=== PATIENT | male | born 1950 | race Caucasian/White ===

== ENCOUNTER → 2016-10-11 | Outpatient (CLI) | payer BC ==
[~2016-10-11] MED LIST: ATOR40TA PO; JANU100T PO; METF500T PO; VALS320T PO
--- NOTE | 2016-10-11 09:20 | REP ---
Right upper quadrant sonography: History: Epigastric pain and nausea. Comparison CT study March 15, 2016. Comparison sonography March 15, 2016. Findings: Scan quality is inhibited to some degree by patient body habitus and fatty infiltration of the liver. No focal hepatic lesion is seen. Scanning demonstrates a normal sized thin-walled gallbladder without evidence of polyp. Common bile duct is normal measuring 0.6 cm in greatest diameter. The pancreas is obscured by abdominal gas. There is no evidence of ascites or right renal abnormality. The right kidney measures 12.8 x 6.2 x 5.7 cm. Impression Fatty infiltration of the liver. No other significant abnormality seen. Signed by Daniel Sandoval MD 10/11/2016 12:57 P
== END ==
LOC: M RAD 08:08
PROVIDERS: ATTEND Internal Medicine Gastroenterology
DX: K76.0 Fatty (change of) liver, not elsewhere classified (principal)

== ENCOUNTER → 2016-10-27 | Outpatient (CLI) | payer BC ==
[~2016-10-27] VITALS: Ht 180.3 cm; Wt 123.4 kg
[~2016-10-27] MED LIST changes: -ATOR40TA PO; +ATOR40TA75 PO; -METF500T PO; +METF500T13 PO; +NS 1,000 ML IV ONE; +PROPOFOL 200 MG/20 ML VIAL As Ordered ONE
--- NOTE | 2016-10-27 12:01 | ROOR ---
Patient Name: Johnie Love Procedure Date: 10/27/2016 11:47 AM Date of : 1950 Age: 66 Room: [facility] Gender: Male Note Status: Finalized Procedure: Upper Endoscopy + Biopsies Indications: Heartburn, Exclusion of Honeycutt's esophagus Providers: Mars Pearce MD Referring MD: KRYSTIAN HARRINGTON JR, MD Requesting Provider: Medicines: Monitored Anesthesia Care Complications: No immediate complications. Procedure: Pre-Anesthesia Assessment: - The heart rate, respiratory rate, oxygen saturations, blood pressure, adequacy of pulmonary ventilation, and response to care were monitored throughout the procedure. The Endoscope was introduced through the mouth, and advanced to the second part of duodenum. The upper GI endoscopy was accomplished without difficulty. The patient tolerated the procedure well. Findings: The Z-line was irregular and was found 40 cm from the incisors. Multiple biopsies were obtained with cold forceps for evaluation to rule out Honeycutt's Esophagus randomly at the gastroesophageal junction. A small hiatal hernia was present. No other significant abnormalities were identified in a careful examination of the stomach. The exam of the duodenum was otherwise normal. Impression: - Z-line irregular, 40 cm from the incisors. - Small hiatal hernia. - Multiple biopsies were obtained at the gastroesophageal junction. - The examination was otherwise normal. Recommendation: - Patient has a contact number available for emergencies. The signs and symptoms of potential delayed complications were discussed with the patient. Return to normal activities tomorrow. Written discharge instructions were provided to the patient. - High fiber diet. - Discharge patient to home. - Follow an antireflux regimen. - Continue present medications. - Await pathology results. - Telephone GI clinic for pathology results in 1 week. - Return to referring physician. - The findings and recommendations were discussed with the patient's family. Mars Pearce MD Mars Pearce MD 10/27/2016 12:01:29 PM This report has been signed electronically. Number of Addenda: 0 Note Initiated On: 10/27/2016 11:47 AM Estimated Blood Loss: Estimated blood loss: none.
[2016-10-27 12:30] VITALS: BP 138/87
== END | disposition home or self-care (01) ==
LOC: M OPP 10:57
PROVIDERS: ATTEND Internal Medicine Gastroenterology
DX: K21.0 Gastro-esophageal reflux disease with esophagitis (principal); K22.8 Other specified diseases of esophagus; K44.9 Diaphragmatic hernia without obstruction or gangrene; E11.9 Type 2 diabetes mellitus without complications; I10 Essential (primary) hypertension; E78.00 Pure hypercholesterolemia, unspecified; E66.9 Obesity, unspecified; Z79.899 Other long term (current) drug therapy; Z79.84 Long term (current) use of oral hypoglycemic drugs; Z88.1 Allergy status to other antibiotic agents

== ENCOUNTER → 2019-05-29 | Outpatient (CLI) | payer BC ==
[~2019-05-29] MED LIST changes: -NS 1,000 ML IV ONE; -PROPOFOL 200 MG/20 ML VIAL As Ordered ONE; -VALS320T PO; +VALS320T2 PO
--- NOTE | 2019-05-29 16:40 | REP ---
PA and lateral chest: There are no comparisons. The lung tee are clear. The cardiac size is normal. The carlos a, mediastinum, and skeletal structures are unremarkable. Impression: Negative PA and lateral chest. Electronically Signed by Jarred Rey MD 05/29/2019 04:32 P
== END ==
LOC: M WUC 10:26
PROVIDERS: ATTEND Internal Medicine
DX: R05 Cough (principal)

== ENCOUNTER → 2020-06-09 | Outpatient (CLI) | payer BC, MEDICARE ==
--- NOTE | 2020-06-09 15:48 | REP ---
INDICATION: SWELLING, SOFT TISSUE MASS. COMPARISON: None. TECHNIQUE: Real-time sonographic evaluation of proximal left lower leg performed anteriorly at the site of bruising and swelling. Reportedly the swelling as decreased. FINDINGS: At this location there is a complex hypoechoic area which appears to represent complex fluid. It measures 2.6 x 2.2 x 0.9 cm. I suspect this represents a hematoma. IMPRESSION: Suspected hematoma at the site of bruising and swelling. <Electronically signed by Jarred Worley > 06/09/20 [id number]
== END ==
LOC: M RAD 13:10
PROVIDERS: ATTEND Internal Medicine
DX: R22.42 Localized swelling, mass and lump, left lower limb (principal)

== ENCOUNTER → 2020-09-12 | Outpatient (CLI) | payer MEDICARE ==
[~2020-09-12] MED LIST changes: +BASA100I; +FARX1TAB5; +LOSA50TA88
== END ==
LOC: M LABSMTC 11:57
PROVIDERS: ATTEND Anesthesiology
DX: Z01.812 Encounter for preprocedural laboratory examination (principal); Z11.52 Encounter for screening for COVID-19

== ENCOUNTER 2020-09-17 06:40 | Day surgery (SDC) | payer MEDICARE ==
[~2020-09-17] VITALS: Ht 180.3 cm; Wt 118.8 kg
[~2020-09-17 06:40] MED LIST changes: +NS 1,000 ML IV ONE
[2020-09-17] MEDS ORDERED: LIDOCAINE 2% MDV 20ML VIAL As Ordered ONE (07:20)
[2020-09-17] MEDS ORDERED: propofoL 200 MG/20 ML VIAL As Ordered ONE ×2 (07:20→07:33)
--- NOTE | 2020-09-17 08:04 | ROOR ---
Patient Name: Johnie Love Procedure Date: 09/17/2020 7:27 AM Date of : 1950 Age: 70 Room: [facility] Gender: Male Note Status: Finalized Procedure: Total Colonoscopy to Cecum + ileoscopy + Bx Polypectomy Indications: High risk colon cancer surveillance: Personal history of colonic polyps, Last colonoscopy: 2015 Providers: Mars Pearce MD Referring MD: KRYSTIAN HARRINGTON JR, MD Requesting Provider: Medicines: Monitored Anesthesia Care Complications: No immediate complications. Procedure: Pre-Anesthesia Assessment: - The heart rate, respiratory rate, oxygen saturations, blood pressure, adequacy of pulmonary ventilation, and response to care were monitored throughout the procedure. The Colonoscope was introduced through the anus and advanced to the terminal ileum, with identification of the appendiceal orifice and IC valve. The colonoscopy was performed without difficulty. The patient tolerated the procedure well. The quality of the bowel preparation was excellent. Findings: The perianal and digital rectal examinations were normal. Non-bleeding internal hemorrhoids were found during retroflexion. The hemorrhoids were small and Grade I (internal hemorrhoids that do not prolapse). Multiple small and large-mouthed diverticula were found in the recto-sigmoid colon, sigmoid colon and descending colon. A small polyp was found at 20 cm proximal to the anus. The polyp was sessile. The polyp was removed with a jumbo cold forceps. Resection and retrieval were complete. A small polyp was found at 70 cm proximal to the anus. The polyp was sessile. The polyp was removed with a jumbo cold forceps. Resection and retrieval were complete. The terminal ileum appeared normal. The exam was otherwise without abnormality on direct and retroflexion views. Impression: - Non-bleeding internal hemorrhoids. - Diverticulosis in the recto-sigmoid colon, in the sigmoid colon and in the descending colon. - One small polyp at 20 cm proximal to the anus, removed with a jumbo cold forceps. Resected and retrieved. - One small polyp at 70 cm proximal to the anus, removed with a jumbo cold forceps. Resected and retrieved. - The examined portion of the ileum was normal. - The examination was otherwise normal on direct and retroflexion views. - The exam was otherwise normal to the cecum. Recommendation: - Patient has a contact number available for emergencies. The signs and symptoms of potential delayed complications were discussed with the patient. Return to normal activities tomorrow. Written discharge instructions were provided to the patient. - High fiber diet. - Discharge patient to home. - Continue present medications. - Await pathology results. - Telephone GI clinic for pathology results in 1 week. - Repeat colonoscopy in 5 years for surveillance based on pathology results. - Return to referring physician. - The findings and recommendations were discussed with the patient's family. Procedure Code(s): --- Professional --- 47069, Colonoscopy, flexible; with biopsy, single or multiple Diagnosis Code(s): --- Professional --- Z86.010, Personal history of colonic polyps K64.0, First degree hemorrhoids K63.5, Polyp of colon K57.30, Diverticulosis of large intestine without perforation or abscess without bleeding CPT copyright 2019 [employer]. All rights reserved. The codes documented in this report are preliminary and upon public housing interviewer review may be revised to meet current compliance requirements. Mars Pearce MD Mars Pearce MD 09/17/2020 8:04:24 AM Electronically signed by Mars Pearce MD Number of Addenda: 0 Note Initiated On: 09/17/2020 7:27 AM Estimated Blood Loss: Estimated blood loss: none.
[2020-09-17 08:16] VITALS: BP 147/85
== END 2020-09-17 08:17 | disposition home or self-care (01) ==
LOC: M OPP 06:40
PROVIDERS: ATTEND Internal Medicine Gastroenterology
DX: Z12.11 Encounter for screening for malignant neoplasm of colon (principal); Z86.010 Personal history of colon polyps; K63.5 Polyp of colon; K57.30 Diverticulosis of large intestine without perforation or abscess without bleeding; K64.0 First degree hemorrhoids; E11.9 Type 2 diabetes mellitus without complications; I10 Essential (primary) hypertension; Z79.84 Long term (current) use of oral hypoglycemic drugs; Z79.899 Other long term (current) drug therapy

== ENCOUNTER → 2020-10-07 | Outpatient (CLI) | payer MEDICARE ==
[~2020-10-07] MED LIST changes: -NS 1,000 ML IV ONE
--- NOTE | 2020-10-07 15:34 | REP ---
INDICATION: MID STERNUM PAIN COMPARISON: 05/29/2019 TECHNIQUE: PA and lateral. FINDINGS: The mediastinum and cardiac silhouette are normal. The lung tee demonstrate stable chronic changes without acute consolidation, effusion, or pneumothorax. The skeletal structures are intact and normal. IMPRESSION: No acute cardiopulmonary process. <Electronically signed by Javon Galan > 10/07/20 [id number]
[2020-10-07 18:13] LABS: AMYLASE 45 U/L (25-115); LIPASE 150 U/L (73-393)
== END ==
LOC: M WUC 14:55
PROVIDERS: ATTEND Physician Assistant Medical
DX: R10.13 Epigastric pain (principal)

== ENCOUNTER → 2020-10-21 | Outpatient (CLI) | payer MEDICARE ==
--- NOTE | 2020-10-21 10:06 | REP ---
INDICATION: RUQ ABD PAIN. COMPARISON: 10/11/2016. TECHNIQUE: Real-time sonographic evaluation of right upper quadrant performed. FINDINGS: The gallbladder demonstrates no evidence of calculi, wall thickening or pericholecystic fluid. There is questionable sludge in the gallbladder. There is tenderness at the site of the gallbladder. There is no intrahepatic biliary dilatation, the common bile duct is slightly prominent and measures 8 mm in maximum diameter. The liver demonstrates homogeneous echotexture with no gross mass. The visualized pancreas is grossly unremarkable, not optimally seen due to overlying bowel gas. The right kidney demonstrates no hydronephrosis, with a normal size of 12.0 cm in length. No free fluid is seen. IMPRESSION: Questionable sludge in the gallbladder. No gallstones, gallbladder wall thickening or pericholecystic fluid. There is tenderness at the site of the gallbladder. There is slight prominence of the common bile duct at 8 mm in maximum diameter. <Electronically signed by Jarred Worley > 10/21/20 [id number]
== END ==
LOC: M RAD 06:41
PROVIDERS: ATTEND Physician Assistant Medical
DX: R10.11 Right upper quadrant pain (principal)

== ENCOUNTER → 2021-02-11 | Outpatient (REF) | payer MEDICARE ==
[2021-02-11 12:48] LABS: INR 1.04
[2021-02-11 12:49] LABS: PARTIAL THROMBOPLASTIN TIME 26.2 SECONDS (25.9-37.0)
== END ==
LOC: M LAB REF 12:27
PROVIDERS: ATTEND Internal Medicine
DX: I48.91 Unspecified atrial fibrillation (principal)

== ENCOUNTER → 2021-02-27 | Outpatient (CLI) | payer MEDICARE ==
--- NOTE | 2021-03-01 21:07 | HOLTMON ---
[facility] Test Date: 2021-02-27 Pat Name: SHANTANU MORE Department: Room: - Gender: Male Skeet Operator: jeannette : 1950 Requested By: Juan Lockwood Order Number: [id number] Reading MD: Peng Castanon Interpretive Statements Patient kept a diary for only half of monitoring period and then did not note any symptoms Atrial fibrillation was seen throughout the tracing. Heart rate variability was normal. There were a moderate number of PVC's (vs Benny beats) and no PAC's (atrial fibrillation throughout) with one 3-beat ventricular run. No significant ST events. 3 pauses of over 2 seconds were recorded. Electronically Signed on 03-01-2021 21:07:22 EDT by Peng Castanon
== END ==
LOC: M EKG 09:38
PROVIDERS: ATTEND Internal Medicine
DX: I48.91 Unspecified atrial fibrillation (principal)

== ENCOUNTER → 2021-03-02 | Outpatient (CLI) | payer MEDICARE ==
--- NOTE | 2021-03-04 09:55 | ECHO ---
ECHOCARDIOGRAM DATE OF PROCEDURE: 03/02/2021 Age: 70 Gender: Male Height: 71 inches Weight: 264 pounds Body surface area: 2.37 m2 Outpatient. REFERRING PHYSICIAN: Juan Lynne Jr, M.D. INDICATION: Atrial fibrillation. MEASUREMENTS: 2D Measurements: RV - 3.7 cm LV - 4.8 cm Septum 1.3 cm Posterior wall 1.3 cm Aortic root 3.6 cm LA - 4.6 cm LVEF 75% Doppler Measurements: AV - 1.19 m/s LVOT - 1.11 m/s LVOT diameter 2.0 cm MB-V 90 Early mitral deceleration time 162 msec E prime medial 6.1 A prime lateral 10.8 Average E/E prime ratio 10.7/PCWP 15 mmHg PV - 0.9 m/s Pulmonary artery acceleration time 109 msec PASP 34 mmHg IVC - 1.9 cm COMMENTS: Underlying atrial fibrillation with controlled ventricular response and no intraventricular conduction disturbance. Challenging study in light of the patient's body habitus, but diagnostically useful information was still obtained. M-mode and 2-dimensional echocardiography was performed with pulse, continuous wave, color flow, and tissue Doppler studies. Mild concentric left ventricular hypertrophy with hyperkinetic wall motion. Moderately dilated left atrium with current estimated mean left atrial pressure upper limits of normal. Normal right heart chamber sizes and motion with Doppler sign of mild pulmonary hypertension. Normal IVC size against an elevated central venous pressure. Normal aortic diameters. Mild aortic valvular sclerosis without stenosis and only very mild insufficiency. Mild degenerative changes of the mitral valvular apparatus with mild insufficiency. Normal-appearing tricuspid valve with very mild insufficiency. No apparent intracardiac mass or pericardial effusion.
== END ==
LOC: M CARPUL 09:13
PROVIDERS: ATTEND Internal Medicine
DX: I48.91 Unspecified atrial fibrillation (principal); I08.3 Combined rheumatic disorders of mitral, aortic and tricuspid valves

== ENCOUNTER → 2021-03-27 | Outpatient (CLI) | payer MEDICARE ==
[~2021-03-27] MED LIST changes: +ISOVUE-370 76% 100ML VIAL As Ordered ONE
--- NOTE | 2021-03-27 10:39 | REP ---
INDICATION: RUQ ABD PAIN. COMPARISON: CT abdomen 03/15/[address] abdomen and pelvis 01/24/2015 both before and after contrast TECHNIQUE: Standard helical technique after the intravenous administration of 100 cc Isovue 370 FINDINGS: The lung bases are stable. The liver, gallbladder, spleen, pancreas, adrenal glands, and kidneys are within normal limits. Although intravenous contrast was administered and there are no pre contrast-enhanced images to review there are 2 sub cm sized radiodensities in the interpolar region of the left kidney possibly reflecting either early contrast excretion or non-obstructing calculi. The abdominal aorta and para-aortic regions are unchanged and again seen to be within normal limits. There is descending colon and sigmoid colon diverticulosis status quo. The bowel loops and the mesenteries are otherwise unremarkable. There is no evidence of a mass or adenopathy. There is no free fluid or free air. Increased adipose seen in the right inguinal canal compared to the left which has increased compared to the 01/24/2015 CT. Bone window technique throughout the examination shows chronic spinal degenerative changes and discogenic changes seen particularly at L4-5 and L5-S1. There is air density seen in those disc spaces consistent with vacuum phenomena from degenerative disc disease. IMPRESSION: 1. There is no evidence of acute disease. 2. Possible small non-obstructing left nephroliths as described above. If clinically relevant obtained noncontrast enhanced stone protocol CT. 3. Possible adipose only right inguinal hernia. This should be correlated clinically. 4. Other findings as described above. <Electronically signed by Peterson Chu > 03/27/21 [id number]
== END ==
LOC: M RAD 09:08
PROVIDERS: ATTEND Physician Assistant Medical
DX: R10.11 Right upper quadrant pain (principal)
CPT/HCPCS: 74177; Q9967

== ENCOUNTER → 2021-08-05 | Outpatient (CLI) | payer MEDICARE ==
[~2021-08-05] MED LIST changes: -ISOVUE-370 76% 100ML VIAL As Ordered ONE; +LOSA50TA28; -LOSA50TA88
== END ==
LOC: M RAD 12:15
PROVIDERS: ATTEND Internal Medicine
DX: M79.605 Pain in left leg (principal)

== ENCOUNTER 2022-04-20 08:12 | Emergency (ER) | payer MEDICARE ==
[~2022-04-20] VITALS: Ht 180.3 cm; Wt 118.2 kg
[~2022-04-20 08:12] MED LIST changes: -LOSA50TA28; +LOSA50TA28 PO
[2022-04-20] MEDS ORDERED: ELIQ5TAB PO (09:09)
[2022-04-20] MEDS ORDERED: METF-838 PO (09:09)
[2022-04-20] MEDS ORDERED: CARV25TA PO (09:09)
[2022-04-20] MEDS ORDERED: TRAZ-252 PO (09:09)
[2022-04-20] MEDS ORDERED: BUSP10TA79 PO (09:09)
[2022-04-20] MEDS ORDERED: ATOR80TA59 PO (09:09)
[2022-04-20] MEDS ORDERED: QUET1TAB17 PO (09:09)
[2022-04-20] MEDS ORDERED: FARX1TAB3 PO (09:09)
[2022-04-20] MEDS ORDERED: BASA100I SC (09:14)
[2022-04-20] MEDS ORDERED: SERT50TA29 PO (09:26)
[2022-04-20] MEDS ORDERED: ATIV1TAB10 PO (09:26)
[2022-04-20] MEDS ORDERED: META1TAB22 PO (09:26)
[2022-04-20 11:26] VITALS: BP 128/68
[2022-04-21] MEDS ORDERED: LOSA100T45 PO (16:15)
[2022-04-21] MEDS ORDERED: APAP500T10 PO (16:15)
== END 2022-04-20 11:42 | disposition home or self-care (01) ==
LOC: M ED 08:12 → EDBD 08:12 → M ED 11:42
DX: S93.402A Sprain of unspecified ligament of left ankle, initial encounter (principal); S83.412A Sprain of medial collateral ligament of left knee, initial encounter; S92.155A Nondisplaced avulsion fracture (chip fracture) of left talus, initial encounter for closed fracture; W01.0XXA Fall on same level from slipping, tripping and stumbling without subsequent striking against object, initial encounter; Y92.002 Bathroom of unspecified non-institutional (private) residence as the place of occurrence of the external cause; I48.91 Unspecified atrial fibrillation; I10 Essential (primary) hypertension; E11.9 Type 2 diabetes mellitus without complications; E78.5 Hyperlipidemia, unspecified; Z86.73 Personal history of transient ischemic attack (TIA), and cerebral infarction without residual deficits; Z88.1 Allergy status to other antibiotic agents; Z79.01 Long term (current) use of anticoagulants; Z79.899 Other long term (current) drug therapy

== ENCOUNTER 2022-04-21 10:26 | Inpatient (IN) | payer MEDICARE ==
[~2022-04-21] VITALS: Ht 180.3 cm; Wt 103.9 kg
[~2022-04-21 10:26] MED LIST changes: +ATIV1TAB10 PO; +ATOR80TA59 PO; +BASA100I SC; +BUSP10TA79 PO; +CARV25TA PO; +ELIQ5TAB PO; +FARX1TAB3 PO; +META1TAB22 PO; +METF-838 PO; +QUET1TAB17 PO; +SERT50TA29 PO; +TRAZ-252 PO
[2022-04-21 13:15] LABS: BASO % 0.6 % (0.0-1.0); EOS # 0.2 10^3/uL (0.0-0.5); EOS % 2.8 % (0.0-3.0); HEMATOCRIT 40.4 % (42.0-52.0); HEMOGLOBIN 12.7 g/dl (13.5-17.5); LYMPH # 1.8 10^3/uL (1.5-5.0); LYMPH % 24.5 % (24.0-44.0); MEAN CORPUSCULAR HEMOGLOBIN 29.4 pg (27.0-33.0); MEAN CORPUSCULAR HGB CONC 31.4 g/dl (32.0-36.5); MEAN CORPUSCULAR VOLUME 93.5 fl (80.0-96.0); MONO # 0.8 10^3/uL (0.0-0.8); MONO % 10.3 % (2.0-8.0); NEUTROPHILS # 4.5 10^3/uL (1.5-8.5); NEUTROPHILS % 61.5 % (36.0-66.0); PLATELET COUNT, AUTOMATED 146 10^3/uL (150-450); RED BLOOD COUNT 4.32 10^6/uL (4.30-6.10); WHITE BLOOD COUNT 7.3 10^3/uL (4.0-10.0)
[2022-04-21 13:16] LABS: APPEARANCE, URINE MANUAL CLEAR (CLEAR); COLOR, URINE MANUAL YELLOW (YELLOW)
[2022-04-21 13:19] LABS: BILIRUBIN, URINE MANUAL NEGATIVE (NEGATIVE); BLOOD URINE MANUAL NEGATIVE (NEGATIVE); GLUCOSE, URINE (UA) MANUAL 4+(1000 MG/DL) mg/dL (NEGATIVE); KETONE, URINE MANUAL NEGATIVE (NEGATIVE); LEUKOCYTE ESTERASE, URINE MAN NEGATIVE (NEGATIVE); NITRITE, URINE MANUAL NEGATIVE (NEGATIVE); PROTEIN, URINE MANUAL NEGATIVE (NEGATIVE); UROBILINOGEN, URINE MANUAL NORMAL (NORMAL)
[2022-04-21 13:28] LABS: INR 1.13; PROTHROMBIN TIME 14.7 SECONDS (12.5-14.5)
[2022-04-21 13:29] LABS: PARTIAL THROMBOPLASTIN TIME 30.6 SECONDS (24.8-34.2)
[2022-04-21 13:37] LABS: ALBUMIN 2.9 G/DL (3.2-5.2); ALKALINE PHOSPHATASE 60 U/L (46-116); ALT/SGPT 14 U/L (7.0-40); AST/SGOT 20 U/L (<34); BILIRUBIN,TOTAL 0.5 MG/DL (0.3-1.2); BLOOD UREA NITROGEN 23 MG/DL (9-23); CARBON DIOXIDE LEVEL 27 MMOL/L (20-31); CHLORIDE LEVEL 109 MMOL/L (98-107); CREATININE FOR GFR 0.71 MG/DL (0.70-1.30); GLOMERULAR FILTRATION RATE > 60.0 (>42); GLUCOSE, FASTING 77 MG/DL (74-106); POTASSIUM SERUM 4.5 MMOL/L (3.5-5.1); SODIUM LEVEL 144 MMOL/L (136-145); TOTAL PROTEIN 5.7 G/DL (5.7-8.2)
[2022-04-21] MEDS ORDERED: MOM 30ML SUSPENSION UDC PO PRN (14:15)
[2022-04-21] MEDS ORDERED: GLUCOSE 4GM CHEW TABLET PO PRN (14:15)
[2022-04-21] MEDS ORDERED: ACETAMINOPHEN TAB 650MG DOSE (2X325MG) PO PRN (14:15)
[2022-04-21] MEDS ORDERED: GLUCAGON INJ 1MG VIAL SC PRN (14:15)
[2022-04-21] MEDS ORDERED: DEXTROSE 50% 50ML SYRINGE IV PRN (14:15)
[2022-04-21] MEDS ORDERED: APAP500T10 PO (16:15)
[2022-04-21] MEDS ORDERED: LOSA100T45 PO (16:15)
[2022-04-21] MEDS ORDERED: HOME MED LIST COMPLETE! XX SCH (16:20)
[2022-04-21] MEDS ORDERED: ACETAMINOPHEN 500 MG TAB PO PRN (16:45)
[2022-04-21] MEDS ORDERED: KETOROLAC 30 MG/ML 1ML VIAL IV PRN (16:45)
[2022-04-21] MEDS: INSULIN LISPRO (NovoLOG) PER UNIT SC SCH ×2 (17:30→20:13)
[2022-04-21 18:15] VITALS: BP 165/95
[2022-04-21] MEDS: LIDOCAINE 5% (LIDODERM) PATCH TD SCH (18:38)
[2022-04-21 19:56] VITALS: BP 156/94
[2022-04-21] MEDS: traZODone 50 MG TAB PO SCH (20:10)
[2022-04-21] MEDS: APIXABAN 5 MG TAB (ELIQUIS) PO SCH (20:10)
[2022-04-21] MEDS: LORazepam 0.5 MG TAB PO PRN (20:11)
[2022-04-21] MEDS: CARVedilol 12.5 MG TAB PO SCH (20:12)
[2022-04-21] MEDS: DOCUSATE SODIUM 100MG CAPSULE PO SCH (20:12)
[2022-04-21] MEDS: METAXALONE 800 MG TABLET PO SCH (21:41)
[2022-04-22] MEDS: oxyCODONE 5MG TAB PO PRN ×2 (02:09→15:46)
[2022-04-22] MEDS: METAXALONE 800 MG TABLET PO SCH ×3 (06:17→21:10)
[2022-04-22 06:18] VITALS: BP 138/84
[2022-04-22] MEDS: INSULIN LISPRO (NovoLOG) PER UNIT SC SCH ×4 (07:30→20:59)
[2022-04-22] MEDS: DOCUSATE SODIUM 100MG CAPSULE PO SCH ×2 (09:00→21:09)
[2022-04-22] MEDS: SERTRALINE HCL 50 MG TAB PO SCH (09:35)
[2022-04-22] MEDS: ATORVASTATIN 20 MG TAB PO SCH (09:36)
[2022-04-22] MEDS: LIDOCAINE 5% (LIDODERM) PATCH TD SCH (09:39)
[2022-04-22] MEDS: LOSARTAN 50MG TABLET PO SCH (10:29)
[2022-04-22] MEDS: CARVedilol 12.5 MG TAB PO SCH ×2 (10:33→21:10)
[2022-04-22] MEDS: LORazepam 0.5 MG TAB PO PRN ×2 (12:26→21:10)
[2022-04-22 14:00] VITALS: BP 110/60
[2022-04-22] MEDS: ACETAMINOPHEN 500 MG TAB PO SCH ×2 (14:56→21:09)
[2022-04-22 19:51] VITALS: BP 132/75
[2022-04-22] MEDS: APIXABAN 5 MG TAB (ELIQUIS) PO SCH (21:09)
[2022-04-22] MEDS: traZODone 50 MG TAB PO SCH (21:10)
[2022-04-23 04:31] VITALS: BP 146/107
[2022-04-23] MEDS: oxyCODONE 5MG TAB PO PRN ×3 (04:53→19:31)
[2022-04-23 05:30] VITALS: BP 152/96
[2022-04-23] MEDS: METAXALONE 800 MG TABLET PO SCH ×3 (05:34→21:04)
[2022-04-23] MEDS: LOSARTAN 50MG TABLET PO SCH ×2 (05:48→09:39)
[2022-04-23] MEDS: INSULIN LISPRO (NovoLOG) PER UNIT SC SCH ×4 (07:30→20:19)
[2022-04-23] MEDS: ATORVASTATIN 20 MG TAB PO SCH (09:38)
[2022-04-23] MEDS: CARVedilol 12.5 MG TAB PO SCH ×2 (09:39→21:04)
[2022-04-23] MEDS: ACETAMINOPHEN 500 MG TAB PO SCH ×2 (09:40→21:05)
[2022-04-23] MEDS: DOCUSATE SODIUM 100MG CAPSULE PO SCH ×2 (09:41→21:00)
[2022-04-23] MEDS: SERTRALINE HCL 50 MG TAB PO SCH (09:41)
[2022-04-23] MEDS: LIDOCAINE 5% (LIDODERM) PATCH TD SCH (09:41)
[2022-04-23 14:00] VITALS: BP 120/83
[2022-04-23 21:01] VITALS: BP 161/94
[2022-04-23] MEDS: traZODone 50 MG TAB PO SCH (21:04)
[2022-04-23] MEDS: APIXABAN 5 MG TAB (ELIQUIS) PO SCH (21:04)
[2022-04-23] MEDS: LORazepam 0.5 MG TAB PO PRN (21:04)
[2022-04-23] MEDS: traMADol 50 MG TAB PO PRN (23:47)
[2022-04-24] MEDS: METAXALONE 800 MG TABLET PO SCH ×3 (05:31→21:09)
[2022-04-24 06:00] VITALS: BP 146/80
[2022-04-24] MEDS: oxyCODONE 5MG TAB PO PRN ×2 (06:34→17:38)
[2022-04-24] MEDS: CARVedilol 12.5 MG TAB PO SCH ×2 (08:06→21:09)
[2022-04-24] MEDS: DOCUSATE SODIUM 100MG CAPSULE PO SCH ×2 (08:06→21:00)
[2022-04-24] MEDS: LIDOCAINE 5% (LIDODERM) PATCH TD SCH (08:07)
[2022-04-24] MEDS: SERTRALINE HCL 50 MG TAB PO SCH (08:07)
[2022-04-24] MEDS: ACETAMINOPHEN 500 MG TAB PO SCH (08:07)
[2022-04-24] MEDS: ATORVASTATIN 20 MG TAB PO SCH (08:07)
[2022-04-24] MEDS: INSULIN LISPRO (NovoLOG) PER UNIT SC SCH ×4 (08:09→21:00)
[2022-04-24 21:00] VITALS: BP 152/93
[2022-04-24] MEDS: APIXABAN 5 MG TAB (ELIQUIS) PO SCH (21:09)
[2022-04-24] MEDS: traZODone 50 MG TAB PO SCH (21:09)
[2022-04-24] MEDS: LORazepam 0.5 MG TAB PO PRN (21:10)
[2022-04-24] MEDS: traMADol 50 MG TAB PO PRN (21:10)
[2022-04-25] MEDS: ACETAMINOPHEN 500 MG TAB PO SCH ×3 (01:48→20:32)
[2022-04-25 05:59] VITALS: BP 154/98
[2022-04-25] MEDS: METAXALONE 800 MG TABLET PO SCH ×2 (06:01→12:14)
[2022-04-25] MEDS: ATORVASTATIN 20 MG TAB PO SCH (08:10)
[2022-04-25] MEDS: oxyCODONE 5MG TAB PO PRN ×2 (08:11→15:03)
[2022-04-25] MEDS: INSULIN LISPRO (NovoLOG) PER UNIT SC SCH ×4 (08:11→20:23)
[2022-04-25] MEDS: DOCUSATE SODIUM 100MG CAPSULE PO SCH ×2 (08:11→20:27)
[2022-04-25] MEDS: SERTRALINE HCL 50 MG TAB PO SCH (08:11)
[2022-04-25] MEDS: CARVedilol 12.5 MG TAB PO SCH ×2 (08:13→20:30)
[2022-04-25] MEDS: LIDOCAINE 5% (LIDODERM) PATCH TD SCH (08:14)
[2022-04-25] MEDS: LOSARTAN 50MG TABLET PO SCH (08:14)
[2022-04-25 14:00] VITALS: BP 103/66
[2022-04-25] MEDS: APIXABAN 5 MG TAB (ELIQUIS) PO SCH (20:30)
[2022-04-25] MEDS: LORazepam 0.5 MG TAB PO PRN (20:31)
[2022-04-25] MEDS: traZODone 50 MG TAB PO SCH (20:31)
[2022-04-26] MEDS: METAXALONE 800 MG TABLET PO SCH ×4 (02:17→21:30)
[2022-04-26] MEDS: oxyCODONE 5MG TAB PO PRN ×3 (04:09→20:16)
[2022-04-26 05:56] VITALS: BP 156/90
[2022-04-26] MEDS: ATORVASTATIN 20 MG TAB PO SCH (07:45)
[2022-04-26] MEDS: DOCUSATE SODIUM 100MG CAPSULE PO SCH ×2 (07:45→20:16)
[2022-04-26] MEDS: traMADol 50 MG TAB PO PRN ×2 (07:46→16:31)
[2022-04-26] MEDS: ACETAMINOPHEN 500 MG TAB PO SCH ×2 (07:46→20:17)
[2022-04-26] MEDS: CARVedilol 12.5 MG TAB PO SCH ×2 (07:47→20:19)
[2022-04-26] MEDS: LOSARTAN 50MG TABLET PO SCH (07:47)
[2022-04-26] MEDS: INSULIN LISPRO (NovoLOG) PER UNIT SC SCH ×4 (07:47→20:06)
[2022-04-26] MEDS: LIDOCAINE 5% (LIDODERM) PATCH TD SCH (07:48)
[2022-04-26] MEDS ORDERED: TRAM50TA2 PO (08:29)
[2022-04-26] MEDS ORDERED: LIDO5TD TD (08:29)
[2022-04-26] MEDS ORDERED: COLA100C5 PO (08:29)
[2022-04-26] MEDS ORDERED: OXYC-517 PO (08:29)
[2022-04-26] MEDS ORDERED: BISACODYL 10MG SUPP PR ONE (08:30)
[2022-04-26] MEDS: SERTRALINE HCL 50 MG TAB PO SCH (09:51)
[2022-04-26] MEDS: traZODone 50 MG TAB PO SCH (20:16)
[2022-04-26] MEDS: APIXABAN 5 MG TAB (ELIQUIS) PO SCH (20:16)
[2022-04-26] MEDS: LORazepam 0.5 MG TAB PO PRN (20:16)
[2022-04-27 05:00] VITALS: BP 186/110
[2022-04-27] MEDS: METAXALONE 800 MG TABLET PO SCH (05:12)
[2022-04-27] MEDS: CARVedilol 12.5 MG TAB PO SCH (05:13)
[2022-04-27] MEDS: oxyCODONE 5MG TAB PO PRN ×2 (05:13→11:46)
[2022-04-27] MEDS: LORazepam 0.5 MG TAB PO PRN (05:29)
[2022-04-27 06:15] VITALS: BP 162/98
[2022-04-27] MEDS: DOCUSATE SODIUM 100MG CAPSULE PO SCH (08:09)
[2022-04-27] MEDS: INSULIN LISPRO (NovoLOG) PER UNIT SC SCH ×2 (08:09→11:45)
[2022-04-27] MEDS: LIDOCAINE 5% (LIDODERM) PATCH TD SCH (08:09)
[2022-04-27] MEDS: ATORVASTATIN 20 MG TAB PO SCH (08:09)
[2022-04-27] MEDS: ACETAMINOPHEN 500 MG TAB PO SCH (08:12)
[2022-04-27] MEDS: SERTRALINE HCL 50 MG TAB PO SCH (08:14)
[2022-04-27 08:15] VITALS: BP 142/74
[2022-04-27] MEDS: LOSARTAN 50MG TABLET PO SCH (08:15)
== END 2022-04-27 13:26 | DRG 563 ==
LOC: M ED 10:26 → EDBD 10:26 → M ED INP 14:11 → ENRESERV 16:34 → M MSPAV 18:05
PROVIDERS: ADMIT Internal Medicine Nephrology; ATTEND Internal Medicine Nephrology
DX: S83.242A Other tear of medial meniscus, current injury, left knee, initial encounter (principal); I69.354 Hemiplegia and hemiparesis following cerebral infarction affecting left non-dominant side; I48.91 Unspecified atrial fibrillation; I27.20 Pulmonary hypertension, unspecified; E11.9 Type 2 diabetes mellitus without complications; K57.90 Diverticulosis of intestine, part unspecified, without perforation or abscess without bleeding; I10 Essential (primary) hypertension; E78.5 Hyperlipidemia, unspecified; R26.89 Other abnormalities of gait and mobility; F41.9 Anxiety disorder, unspecified; M25.472 Effusion, left ankle; K64.9 Unspecified hemorrhoids; M19.072 Primary osteoarthritis, left ankle and foot; G47.00 Insomnia, unspecified; W18.09XA Striking against other object with subsequent fall, initial encounter; Y92.012 Bathroom of single-family (private) house as the place of occurrence of the external cause; Y93.89 Activity, other specified; Y99.8 Other external cause status; Z79.01 Long term (current) use of anticoagulants; Z87.81 Personal history of (healed) traumatic fracture; Z79.84 Long term (current) use of oral hypoglycemic drugs; Z79.899 Other long term (current) drug therapy; Z88.1 Allergy status to other antibiotic agents

== ENCOUNTER → 2022-04-28 | Outpatient (REF) ==
[~2022-04-28] MED LIST changes: +APAP500T10 PO; +COLA100C5 PO; +LIDO5TD TD; +LOSA100T45 PO; +OXYC-517 PO; +TRAM50TA2 PO
[2022-04-28 12:03] LABS: HEMOGLOBIN 13.3 g/dl (13.5-17.5); MEAN CORPUSCULAR HEMOGLOBIN 29.4 pg (27.0-33.0); MEAN CORPUSCULAR HGB CONC 32.4 g/dl (32.0-36.5); MEAN CORPUSCULAR VOLUME 90.7 fl (80.0-96.0); PLATELET COUNT, AUTOMATED 242 10^3/uL (150-450); RED BLOOD COUNT 4.52 10^6/uL (4.30-6.10); WHITE BLOOD COUNT 8.7 10^3/uL (4.0-10.0)
[2022-04-28 12:29] LABS: BLOOD UREA NITROGEN 13 MG/DL (9-23); CALCIUM LEVEL 9.3 MG/DL (8.3-10.6); CARBON DIOXIDE LEVEL 24 MMOL/L (20-31); CHLORIDE LEVEL 103 MMOL/L (98-107); CREATININE FOR GFR 0.69 MG/DL (0.70-1.30); GLOMERULAR FILTRATION RATE > 60.0 (>42); GLUCOSE, FASTING 157 MG/DL (74-106); POTASSIUM SERUM 4.1 MMOL/L (3.5-5.1); SODIUM LEVEL 141 MMOL/L (136-145)
== END ==
PROVIDERS: ATTEND Physician Assistant
DX: Z79.899 Other long term (current) drug therapy (principal)

== ENCOUNTER → 2022-05-04 | Outpatient (REF) ==
[2022-05-04 15:37] LABS: HEMATOCRIT 41.4 % (42.0-52.0); HEMOGLOBIN 13.3 g/dl (13.5-17.5); MEAN CORPUSCULAR HEMOGLOBIN 29.5 pg (27.0-33.0); MEAN CORPUSCULAR HGB CONC 32.1 g/dl (32.0-36.5); MEAN CORPUSCULAR VOLUME 91.8 fl (80.0-96.0); PLATELET COUNT, AUTOMATED 218 10^3/uL (150-450); RED BLOOD COUNT 4.51 10^6/uL (4.30-6.10); WHITE BLOOD COUNT 7.3 10^3/uL (4.0-10.0)
[2022-05-04 16:01] LABS: BLOOD UREA NITROGEN 17 MG/DL (9-23); CALCIUM LEVEL 8.5 MG/DL (8.3-10.6); CARBON DIOXIDE LEVEL 24 MMOL/L (20-31); CHLORIDE LEVEL 104 MMOL/L (98-107); CREATININE FOR GFR 0.84 MG/DL (0.70-1.30); GLOMERULAR FILTRATION RATE > 60.0 (>42); GLUCOSE, FASTING 102 MG/DL (74-106); SODIUM LEVEL 141 MMOL/L (136-145)
== END ==
PROVIDERS: ATTEND Physician Assistant
DX: R11.2 Nausea with vomiting, unspecified (principal)

== ENCOUNTER → 2022-05-05 | Outpatient (REF) ==
[2022-05-05 10:06] LABS: HEMATOCRIT 38.3 % (42.0-52.0); HEMOGLOBIN 12.4 g/dl (13.5-17.5); MEAN CORPUSCULAR HEMOGLOBIN 29.6 pg (27.0-33.0); MEAN CORPUSCULAR HGB CONC 32.4 g/dl (32.0-36.5); MEAN CORPUSCULAR VOLUME 91.4 fl (80.0-96.0); PLATELET COUNT, AUTOMATED 189 10^3/uL (150-450); RED BLOOD COUNT 4.19 10^6/uL (4.30-6.10); WHITE BLOOD COUNT 9.5 10^3/uL (4.0-10.0)
[2022-05-05 10:26] LABS: BLOOD UREA NITROGEN 20 MG/DL (9-23); CALCIUM LEVEL 8.2 MG/DL (8.3-10.6); CARBON DIOXIDE LEVEL 26 MMOL/L (20-31); CHLORIDE LEVEL 104 MMOL/L (98-107); CREATININE FOR GFR 0.73 MG/DL (0.70-1.30); GLOMERULAR FILTRATION RATE > 60.0 (>42); GLUCOSE, FASTING 152 MG/DL (74-106); POTASSIUM SERUM 3.6 MMOL/L (3.5-5.1); SODIUM LEVEL 139 MMOL/L (136-145)
== END ==
PROVIDERS: ATTEND Physician Assistant
DX: I10 Essential (primary) hypertension (principal)

== ENCOUNTER → 2022-05-06 | Outpatient (CLI) | payer MEDICARE | LOC: M RAD 13:41 | PROVIDERS: ATTEND Internal Medicine | DX: M25.522 Pain in left elbow (principal); M25.552 Pain in left hip; M79.632 Pain in left forearm; W19.XXXA Unspecified fall, initial encounter ==

== ENCOUNTER → 2022-05-26 | Outpatient (REF) ==
[2022-05-26 11:00] LABS: HEMATOCRIT 39.7 % (42.0-52.0); HEMOGLOBIN 12.7 g/dl (13.5-17.5); MEAN CORPUSCULAR HEMOGLOBIN 30.3 pg (27.0-33.0); MEAN CORPUSCULAR VOLUME 94.7 fl (80.0-96.0); PLATELET COUNT, AUTOMATED 179 10^3/uL (150-450); RED BLOOD COUNT 4.19 10^6/uL (4.30-6.10); WHITE BLOOD COUNT 5.3 10^3/uL (4.0-10.0)
[2022-05-26 11:29] LABS: BLOOD UREA NITROGEN 16 MG/DL (9-23); CALCIUM LEVEL 8.3 MG/DL (8.3-10.6); CARBON DIOXIDE LEVEL 26 MMOL/L (20-31); CHLORIDE LEVEL 108 MMOL/L (98-107); CREATININE FOR GFR 0.75 MG/DL (0.70-1.30); GLOMERULAR FILTRATION RATE > 60.0 (>42); GLUCOSE, FASTING 149 MG/DL (74-106); POTASSIUM SERUM 3.9 MMOL/L (3.5-5.1); SODIUM LEVEL 142 MMOL/L (136-145)
== END ==
PROVIDERS: ATTEND Physician Assistant
DX: I10 Essential (primary) hypertension (principal)

== ENCOUNTER → 2022-06-21 | Outpatient (CLI) | payer MEDICARE | LOC: M RAD 13:26 | PROVIDERS: ATTEND Internal Medicine | DX: R07.82 Intercostal pain (principal); M25.462 Effusion, left knee ==

== ENCOUNTER → 2022-06-23 | Outpatient (REF) ==
[2022-06-23 11:11] LABS: HEMATOCRIT 41.4 % (42.0-52.0); HEMOGLOBIN 13.4 g/dl (13.5-17.5); MEAN CORPUSCULAR HEMOGLOBIN 30.4 pg (27.0-33.0); MEAN CORPUSCULAR HGB CONC 32.4 g/dl (32.0-36.5); MEAN CORPUSCULAR VOLUME 93.9 fl (80.0-96.0); PLATELET COUNT, AUTOMATED 150 10^3/uL (150-450); RED BLOOD COUNT 4.41 10^6/uL (4.30-6.10); WHITE BLOOD COUNT 6.3 10^3/uL (4.0-10.0)
[2022-06-23 11:39] LABS: BLOOD UREA NITROGEN 19 MG/DL (9-23); CALCIUM LEVEL 8.6 MG/DL (8.3-10.6); CARBON DIOXIDE LEVEL 26 MMOL/L (20-31); CHLORIDE LEVEL 106 MMOL/L (98-107); CREATININE FOR GFR 0.78 MG/DL (0.70-1.30); GLOMERULAR FILTRATION RATE > 60.0 (>42); GLUCOSE, FASTING 144 MG/DL (74-106); SODIUM LEVEL 141 MMOL/L (136-145)
== END ==
PROVIDERS: ATTEND Physician Assistant
DX: I10 Essential (primary) hypertension (principal)

== ENCOUNTER → 2022-07-28 | Outpatient (REF) | PROVIDERS: ATTEND Internal Medicine | DX: I10 Essential (primary) hypertension (principal); Z53.8 Procedure and treatment not carried out for other reasons ==

== ENCOUNTER 2022-09-19 10:53 | Observation (INO) | payer MEDICARE ==
[~2022-09-19] VITALS: Ht 180.3 cm; Wt 101.5 kg
[~2022-09-19 10:53] MED LIST changes: -LOSA100T45 PO; +LOSA100T46 PO
[2022-09-19 11:28] LABS: BASO # 0.1 10^3/uL (0.0-0.2); BASO % 0.9 % (0.0-1.0); EOS # 0.2 10^3/uL (0.0-0.5); EOS % 2.6 % (0.0-3.0); HEMATOCRIT 42.6 % (42.0-52.0); HEMOGLOBIN 13.6 g/dl (13.5-17.5); LYMPH # 1.9 10^3/uL (1.5-5.0); LYMPH % 27.1 % (24.0-44.0); MEAN CORPUSCULAR HGB CONC 31.9 g/dl (32.0-36.5); MONO # 0.6 10^3/uL (0.0-0.8); MONO % 8.2 % (2.0-8.0); NEUTROPHILS # 4.2 10^3/uL (1.5-8.5); NEUTROPHILS % 60.9 % (36.0-66.0); PLATELET COUNT, AUTOMATED 141 10^3/uL (150-450); RED BLOOD COUNT 4.53 10^6/uL (4.30-6.10); WHITE BLOOD COUNT 6.9 10^3/uL (4.0-10.0)
[2022-09-19 11:42] LABS: INR 1.24; PROTHROMBIN TIME 15.9 SECONDS (12.5-14.5)
[2022-09-19 11:43] LABS: PARTIAL THROMBOPLASTIN TIME 26.7 SECONDS (24.8-34.2)
[2022-09-19 11:47] LABS: LIPASE 22 U/L (12-53)
[2022-09-19 11:48] LABS: CK-MB VALUE MASS < 1.0 NG/ML (<3.6); CPK CREATINE PHOSPHOKINASE 48 U/L (46-171); MB/CK RELATIVE INDEX 2.08 (< OR =4)
[2022-09-19 11:49] LABS: ALBUMIN 3.1 G/DL (3.2-5.2); ALKALINE PHOSPHATASE 69 U/L (46-116); ALT/SGPT 29 U/L (7.0-40); AST/SGOT 18 U/L (<34); BILIRUBIN,DIRECT 0.3 MG/DL (<0.4); BILIRUBIN,TOTAL 0.8 MG/DL (0.3-1.2); BLOOD UREA NITROGEN 21 MG/DL (9-23); CALCIUM LEVEL 8.5 MG/DL (8.3-10.6); CARBON DIOXIDE LEVEL 28 MMOL/L (20-31); CHLORIDE LEVEL 109 MMOL/L (98-107); CREATININE FOR GFR 0.93 MG/DL (0.70-1.30); GLOMERULAR FILTRATION RATE > 60.0 (>42); GLUCOSE, FASTING 167 MG/DL (74-106); POTASSIUM SERUM 4.6 MMOL/L (3.5-5.1); SODIUM LEVEL 143 MMOL/L (136-145); TOTAL PROTEIN 5.4 G/DL (5.7-8.2)
[2022-09-19] MEDS ORDERED: ISOVUE-370 76% 100ML VIAL As Ordered ONE (12:11)
[2022-09-19 12:13] LABS: RSV AMPLIFICATION NEGATIVE (NEGATIVE)
[2022-09-19 13:21] LABS: CK-MB VALUE MASS < 1.0 NG/ML (<3.6)
[2022-09-19 13:23] LABS: CPK CREATINE PHOSPHOKINASE 56 U/L (46-171); MB/CK RELATIVE INDEX 1.78 (< OR =4)
[2022-09-19] MEDS ORDERED: NS 500 ML IV ONE (14:15)
[2022-09-19] MEDS ORDERED: hydrALAZINE 20MG/ML 1ML VIAL IV PRN (14:50)
[2022-09-19] MEDS ORDERED: DEXTROSE 50% 50ML SYRINGE IV PRN (14:55)
[2022-09-19] MEDS ORDERED: GLUCAGON INJ 1MG VIAL SC PRN (14:55)
[2022-09-19] MEDS ORDERED: GLUCOSE 4GM CHEW TABLET PO PRN (14:55)
[2022-09-19] MEDS ORDERED: SERT25TA21 PO (15:06)
[2022-09-19] MEDS ORDERED: LOSA50TA28 PO (15:06)
[2022-09-19] MEDS ORDERED: ACET-897 PO (15:09)
[2022-09-19] MEDS ORDERED: TAB-TAB3 PO (15:09)
[2022-09-19] MEDS ORDERED: MAGN400T2 PO (15:09)
[2022-09-19] MEDS ORDERED: SPIR-10 PO (15:09)
[2022-09-19] MEDS ORDERED: CLAR10CA3 PO (15:10)
[2022-09-19] MEDS ORDERED: LORATADINE 10 MG TAB PO PRN (15:15)
[2022-09-19] MEDS ORDERED: HOME MED LIST COMPLETE! XX SCH (15:15)
[2022-09-19] MEDS ORDERED: ACETAMINOPHEN 500 MG TAB PO PRN (15:15)
[2022-09-19 15:50] VITALS: BP 163/103
[2022-09-19] MEDS: INSULIN LISPRO (NovoLOG) PER UNIT SC SCH (17:15)
[2022-09-19 20:00] VITALS: BP 155/85
[2022-09-19] MEDS: LOSARTAN 50MG TABLET PO SCH (20:38)
[2022-09-19] MEDS: APIXABAN 5 MG TAB (ELIQUIS) PO SCH (20:39)
[2022-09-19] MEDS ORDERED: PILL CUTTER 1 EACH XX PRN (20:40)
[2022-09-19] MEDS: LEVEMIR (INSULIN DETEMIR) 1 UNITS/0.01ML SC SCH (20:41)
[2022-09-19] MEDS ORDERED: INSULIN LISPRO (NovoLOG) PER UNIT SC SCH (21:00)
[2022-09-20] VITALS: BP 175/96
[2022-09-20 04:00] VITALS: BP 153/96
[2022-09-20 05:19] LABS: HEMATOCRIT 42.4 % (42.0-52.0); HEMOGLOBIN 13.8 g/dl (13.5-17.5); MEAN CORPUSCULAR HEMOGLOBIN 30.2 pg (27.0-33.0); MEAN CORPUSCULAR HGB CONC 32.5 g/dl (32.0-36.5); MEAN CORPUSCULAR VOLUME 92.8 fl (80.0-96.0); PLATELET COUNT, AUTOMATED 136 10^3/uL (150-450); RED BLOOD COUNT 4.57 10^6/uL (4.30-6.10); WHITE BLOOD COUNT 7.8 10^3/uL (4.0-10.0)
[2022-09-20 05:39] LABS: BLOOD UREA NITROGEN 19 MG/DL (9-23); CALCIUM LEVEL 8.9 MG/DL (8.3-10.6); CARBON DIOXIDE LEVEL 30 MMOL/L (20-31); CHLORIDE LEVEL 108 MMOL/L (98-107); CREATININE FOR GFR 0.94 MG/DL (0.70-1.30); GLOMERULAR FILTRATION RATE > 60.0 (>42); GLUCOSE, FASTING 89 MG/DL (74-106); POTASSIUM SERUM 3.8 MMOL/L (3.5-5.1); SODIUM LEVEL 143 MMOL/L (136-145)
[2022-09-20] MEDS: INSULIN LISPRO (NovoLOG) PER UNIT SC SCH (07:06)
[2022-09-20 08:00] VITALS: BP 134/71
[2022-09-20 08:06] LABS: MAGNESIUM LEVEL 1.8 MG/DL (1.8-2.4)
[2022-09-20 08:50] VITALS: BP 134/71
[2022-09-20] MEDS: LOSARTAN 50MG TABLET PO SCH (08:50)
[2022-09-20] MEDS: APIXABAN 5 MG TAB (ELIQUIS) PO SCH (08:51)
[2022-09-20] MEDS: LEVEMIR (INSULIN DETEMIR) 1 UNITS/0.01ML SC SCH (08:54)
[2022-09-20] MEDS ORDERED: SERTRALINE HCL 50 MG TAB PO SCH (09:00)
[2022-09-20] MEDS ORDERED: SERTRALINE HCL 25 MG TABLET PO SCH (09:00)
[2022-09-20] MEDS ORDERED: DAPAGLIFLOZIN PROPANEDIOL 10MG TABLET (FARXIGA) PO SCH (09:00)
[2022-09-20] MEDS ORDERED: MAGNESIUM OXIDE 400MG TAB (MAG-OX) PO SCH (09:00)
[2022-09-20] MEDS ORDERED: ATORVASTATIN 20 MG TAB PO SCH (09:00)
[2022-09-20] MEDS ORDERED: SPIRONOLACTONE 12.5MG PER 1/2 TABLET PO SCH (09:00)
[2022-09-20] MEDS ORDERED: CORE3.12 PO (10:55)
== END 2022-09-20 11:28 | disposition home or self-care (01) ==
LOC: M ED 10:53 → M ED INP 14:18 → ENRESERV 14:45 → M ICU 15:27
PROVIDERS: ADMIT Internal Medicine; ATTEND Internal Medicine
DX: R00.1 Bradycardia, unspecified (principal); E11.9 Type 2 diabetes mellitus without complications; I10 Essential (primary) hypertension; E83.42 Hypomagnesemia; F32.A Depression, unspecified; F41.9 Anxiety disorder, unspecified; I48.91 Unspecified atrial fibrillation; I69.354 Hemiplegia and hemiparesis following cerebral infarction affecting left non-dominant side; E78.5 Hyperlipidemia, unspecified; R55 Syncope and collapse; R06.00 Dyspnea, unspecified; G47.30 Sleep apnea, unspecified; K21.9 Gastro-esophageal reflux disease without esophagitis; Z88.1 Allergy status to other antibiotic agents; Z79.899 Other long term (current) drug therapy; Z79.01 Long term (current) use of anticoagulants; Z79.84 Long term (current) use of oral hypoglycemic drugs; Z79.4 Long term (current) use of insulin
CPT/HCPCS: 36415; 70450; 71045; 71275; 80047; 80048; 80076; 82550; 82553; 83690; 83735; 83880; 84439; 84443; 84484; 85025; 85027; 85610; 85730; 87040; 87631; 93005; 93041; 94760; 96360; 99285; G0378; J1815; Q9967

== ENCOUNTER 2023-01-04 08:05 | Observation (INO) | payer MEDICARE ==
[~2023-01-04] VITALS: Ht 180.3 cm; Wt 109.4 kg
[~2023-01-04 08:05] MED LIST changes: +ACET-897 PO; +CLAR10CA3 PO; +CORE3.12 PO; +MAGN400T2 PO; +SERT25TA21 PO; +SPIR-10 PO; +TAB-TAB3 PO
[2023-01-04] MEDS ORDERED: NS 1,000 ML IV ONE (08:30)
[2023-01-04] MEDS ORDERED: PANTOPRAZOLE 40MG VIAL IV ONE (08:30)
[2023-01-04] MEDS ORDERED: CLOP75TA2 PO (08:35)
[2023-01-04] MEDS ORDERED: JARD1TAB3 PO (08:35)
[2023-01-04] MEDS ORDERED: ASPI-226 PO (08:35)
[2023-01-04 09:17] LABS: BASO % 0.4 % (0.0-1.0); EOS # 0.1 10^3/uL (0.0-0.5); EOS % 1.3 % (0.0-3.0); HEMOGLOBIN 13.6 g/dl (13.5-17.5); LYMPH # 2.2 10^3/uL (1.5-5.0); LYMPH % 24.5 % (24.0-44.0); MEAN CORPUSCULAR HEMOGLOBIN 30.3 pg (27.0-33.0); MEAN CORPUSCULAR HGB CONC 32.4 g/dl (32.0-36.5); MEAN CORPUSCULAR VOLUME 93.5 fl (80.0-96.0); MONO # 0.7 10^3/uL (0.0-0.8); MONO % 8.1 % (2.0-8.0); NEUTROPHILS # 5.9 10^3/uL (1.5-8.5); PLATELET COUNT, AUTOMATED 152 10^3/uL (150-450); RED BLOOD COUNT 4.49 10^6/uL (4.30-6.10); WHITE BLOOD COUNT 9.1 10^3/uL (4.0-10.0)
[2023-01-04 09:28] LABS: INR 1.17; PROTHROMBIN TIME 14.6 SECONDS (12.5-14.5)
[2023-01-04 09:42] LABS: CK-MB VALUE MASS < 1.0 NG/ML (<3.6); ETHYL ALCOHOL (ETHANOL) < 0.003 % (0.000-0.010)
[2023-01-04 09:44] LABS: ALBUMIN 3.4 G/DL (3.2-5.2); ALKALINE PHOSPHATASE 79 U/L (46-116); ALT/SGPT 23 U/L (7.0-40); AST/SGOT 12 U/L (<34); BILIRUBIN,TOTAL 0.6 MG/DL (0.3-1.2); BLOOD UREA NITROGEN 47 MG/DL (9-23); CALCIUM LEVEL 8.9 MG/DL (8.3-10.6); CARBON DIOXIDE LEVEL 29 MMOL/L (20-31); CHLORIDE LEVEL 107 MMOL/L (98-107); CPK CREATINE PHOSPHOKINASE 59 U/L (46-171); CREATININE FOR GFR 0.95 MG/DL (0.70-1.30); GLOMERULAR FILTRATION RATE > 60.0 (>42); GLUCOSE, FASTING 168 MG/DL (74-106); MB/CK RELATIVE INDEX 1.69 (< OR =4); POTASSIUM SERUM 4.1 MMOL/L (3.5-5.1); SODIUM LEVEL 146 MMOL/L (136-145)
[2023-01-04 09:51] LABS: RSV AMPLIFICATION NEGATIVE (NEGATIVE)
[2023-01-04 10:08] LABS: CK-MB VALUE MASS < 1.0 NG/ML (<3.6)
[2023-01-04 10:09] LABS: CPK CREATINE PHOSPHOKINASE 53 U/L (46-171); MB/CK RELATIVE INDEX 1.88 (< OR =4)
[2023-01-04] MEDS ORDERED: MED REC IN PROGRESS XX SCH (11:15)
[2023-01-04] MEDS ORDERED: AMLO2.5T3 PO (11:19)
[2023-01-04] MEDS ORDERED: HOME MED LIST COMPLETE! XX SCH (11:30)
[2023-01-04] MEDS ORDERED: GLUCAGON INJ 1MG VIAL SC PRN (15:20)
[2023-01-04] MEDS ORDERED: DEXTROSE 50% 50ML SYRINGE IV PRN (15:20)
[2023-01-04] MEDS ORDERED: GLUCOSE 4GM CHEW TABLET PO PRN (15:20)
[2023-01-04] MEDS: NS 1,000 ML IV SCH (15:25)
[2023-01-04] MEDS: SERTRALINE HCL 25 MG TABLET PO SCH (15:51)
[2023-01-04] MEDS: ONDANSETRON 4MG 2ML VIAL IV PRN ×2 (16:57→21:20)
[2023-01-04] MEDS: SUCRALFATE SUSP 1GM/10ML UD PO SCH ×2 (17:00→21:20)
[2023-01-04] MEDS: INSULIN LISPRO (NovoLOG) PER UNIT SC SCH (17:28)
[2023-01-04 21:14] VITALS: BP 162/98; TEMP 97.7; O2SAT 99
[2023-01-04] MEDS: PANTOPRAZOLE 40MG VIAL IV SCH (21:20)
[2023-01-04] MEDS: LOSARTAN 50MG TABLET PO SCH (21:21)
[2023-01-04 23:46] VITALS: BP 148/92
[2023-01-05 05:33] VITALS: BP 126/80; TEMP 98.1; O2SAT 97
[2023-01-05 06:24] LABS: BASO # 0.1 10^3/uL (0.0-0.2); BASO % 0.7 % (0.0-1.0); EOS # 0.1 10^3/uL (0.0-0.5); HEMATOCRIT 37.8 % (42.0-52.0); HEMOGLOBIN 12.3 g/dl (13.5-17.5); LYMPH # 1.7 10^3/uL (1.5-5.0); LYMPH % 21.3 % (24.0-44.0); MEAN CORPUSCULAR HEMOGLOBIN 30.1 pg (27.0-33.0); MEAN CORPUSCULAR HGB CONC 32.5 g/dl (32.0-36.5); MEAN CORPUSCULAR VOLUME 92.6 fl (80.0-96.0); MONO # 0.7 10^3/uL (0.0-0.8); MONO % 8.8 % (2.0-8.0); NEUTROPHILS # 5.5 10^3/uL (1.5-8.5); PLATELET COUNT, AUTOMATED 141 10^3/uL (150-450); RED BLOOD COUNT 4.08 10^6/uL (4.30-6.10)
[2023-01-05 06:57] LABS: BLOOD UREA NITROGEN 37 MG/DL (9-23); CALCIUM LEVEL 8.4 MG/DL (8.3-10.6); CARBON DIOXIDE LEVEL 25 MMOL/L (20-31); CHLORIDE LEVEL 110 MMOL/L (98-107); CREATININE FOR GFR 0.84 MG/DL (0.70-1.30); GLOMERULAR FILTRATION RATE > 60.0 (>42); GLUCOSE, FASTING 105 MG/DL (74-106); MAGNESIUM LEVEL 1.7 MG/DL (1.8-2.4); SODIUM LEVEL 144 MMOL/L (136-145)
[2023-01-05] MEDS: INSULIN LISPRO (NovoLOG) PER UNIT SC SCH ×3 (07:30→17:30)
[2023-01-05] MEDS ORDERED: MAGNESIUM OXIDE 400MG TAB (MAG-OX) PO ONE (07:50)
[2023-01-05] MEDS: LEVEMIR (INSULIN DETEMIR) 1 UNITS/0.01ML SC SCH (08:51)
[2023-01-05] MEDS: SUCRALFATE SUSP 1GM/10ML UD PO SCH ×4 (08:51→20:19)
[2023-01-05] MEDS: SPIRONOLACTONE 12.5MG PER 1/2 TABLET PO SCH (08:52)
[2023-01-05] MEDS: ATORVASTATIN 20 MG TAB PO SCH (08:52)
[2023-01-05] MEDS: LOSARTAN 50MG TABLET PO SCH ×2 (08:52→20:19)
[2023-01-05] MEDS: SERTRALINE HCL 25 MG TABLET PO SCH (08:52)
[2023-01-05] MEDS: PANTOPRAZOLE 40MG VIAL IV SCH ×2 (08:53→20:20)
[2023-01-05] MEDS: NS 1,000 ML IV SCH (08:53)
[2023-01-05] MEDS ORDERED: SERTRALINE HCL 50 MG TAB PO SCH (09:00)
[2023-01-05] MEDS: ONDANSETRON 4MG 2ML VIAL IV PRN ×2 (09:07→20:20)
[2023-01-05 14:00] VITALS: BP 125/80; TEMP 97.9; O2SAT 96
[2023-01-05 20:12] VITALS: BP 123/79; TEMP 98.4; O2SAT 95
[2023-01-06] MEDS: NS 1,000 ML IV SCH ×2 (03:07→13:29)
[2023-01-06 06:00] VITALS: BP 135/84; TEMP 97.9; O2SAT 98
[2023-01-06 06:48] LABS: BASO % 0.5 % (0.0-1.0); EOS # 0.2 10^3/uL (0.0-0.5); EOS % 2.1 % (0.0-3.0); HEMATOCRIT 36.2 % (42.0-52.0); HEMOGLOBIN 11.8 g/dl (13.5-17.5); LYMPH # 1.9 10^3/uL (1.5-5.0); LYMPH % 23.9 % (24.0-44.0); MEAN CORPUSCULAR HEMOGLOBIN 30.3 pg (27.0-33.0); MEAN CORPUSCULAR HGB CONC 32.6 g/dl (32.0-36.5); MEAN CORPUSCULAR VOLUME 93.1 fl (80.0-96.0); MONO # 0.7 10^3/uL (0.0-0.8); NEUTROPHILS % 64.1 % (36.0-66.0); PLATELET COUNT, AUTOMATED 136 10^3/uL (150-450); RED BLOOD COUNT 3.89 10^6/uL (4.30-6.10); WHITE BLOOD COUNT 7.8 10^3/uL (4.0-10.0)
[2023-01-06 07:17] LABS: BLOOD UREA NITROGEN 26 MG/DL (9-23); CALCIUM LEVEL 8.6 MG/DL (8.3-10.6); CARBON DIOXIDE LEVEL 27 MMOL/L (20-31); CHLORIDE LEVEL 109 MMOL/L (98-107); CREATININE FOR GFR 0.89 MG/DL (0.70-1.30); GLOMERULAR FILTRATION RATE > 60.0 (>42); GLUCOSE, FASTING 99 MG/DL (74-106); MAGNESIUM LEVEL 1.7 MG/DL (1.8-2.4); POTASSIUM SERUM 3.8 MMOL/L (3.5-5.1); SODIUM LEVEL 145 MMOL/L (136-145)
[2023-01-06] MEDS: INSULIN LISPRO (NovoLOG) PER UNIT SC SCH ×2 (07:30→12:00)
[2023-01-06] MEDS ORDERED: MAGNESIUM OXIDE 400MG TAB (MAG-OX) PO ONE (09:00)
[2023-01-06] MEDS: LEVEMIR (INSULIN DETEMIR) 1 UNITS/0.01ML SC SCH (09:00)
[2023-01-06] MEDS: SERTRALINE HCL 25 MG TABLET PO SCH (09:20)
[2023-01-06] MEDS: SUCRALFATE SUSP 1GM/10ML UD PO SCH ×2 (09:20→12:00)
[2023-01-06 09:21] VITALS: BP 127/96
[2023-01-06] MEDS: LOSARTAN 50MG TABLET PO SCH (09:21)
[2023-01-06] MEDS: SPIRONOLACTONE 12.5MG PER 1/2 TABLET PO SCH (09:21)
[2023-01-06] MEDS: ATORVASTATIN 20 MG TAB PO SCH (09:21)
[2023-01-06] MEDS: PANTOPRAZOLE 40MG VIAL IV SCH (09:22)
[2023-01-06] MEDS ORDERED: propofoL 200 MG/20 ML VIAL As Ordered ONE (12:14)
[2023-01-06] MEDS ORDERED: LIDOCAINE 2% 100MG/5ML SDV (FOR ANES.) As Ordered ONE (12:15)
[2023-01-06 12:40] VITALS: BP 112/79; TEMP 97.9; O2SAT 97
[2023-01-06] MEDS ORDERED: fentaNYL 100 MCG/2 ML INJECTION As Ordered ONE (13:39)
[2023-01-06 14:10] VITALS: BP 112/72; TEMP 97.5; O2SAT 96
[2023-01-06] MEDS ORDERED: SUCR1ORA PO (16:03)
== END 2023-01-06 17:04 | disposition home or self-care (01) ==
LOC: M ED 08:05 → EDBD 08:05 → INTOOBSV 15:00 → M ED INP 15:00 → M MSPAV 20:58
PROVIDERS: ADMIT Student in an Organized Health Care Education/Training Program; ATTEND Student in an Organized Health Care Education/Training Program
DX: K31.89 Other diseases of stomach and duodenum (principal); K22.6 Gastro-esophageal laceration-hemorrhage syndrome; D62 Acute posthemorrhagic anemia; R11.2 Nausea with vomiting, unspecified; I48.91 Unspecified atrial fibrillation; I69.354 Hemiplegia and hemiparesis following cerebral infarction affecting left non-dominant side; Z98.890 Other specified postprocedural states; Z79.02 Long term (current) use of antithrombotics/antiplatelets; Z88.1 Allergy status to other antibiotic agents; Z88.8 Allergy status to other drugs, medicaments and biological substances; Z79.899 Other long term (current) drug therapy; Z79.82 Long term (current) use of aspirin
CPT/HCPCS: 36415; 43235; 71045; 80048; 80053; 82077; 82550; 82553; 83605; 83735; 84484; 85025; 85610; 85730; 86850; 86900; 86901; 87631; 93005; 96361; 96374; 96375; 96376; 97161; 97165; 97530; 97535; 99285; C9113; G0378; J1815; J2405; J3010

== ENCOUNTER → 2023-01-13 | Outpatient (REF) | payer MEDICARE ==
[~2023-01-13] MED LIST changes: +AMLO2.5T3 PO; +ASPI-226 PO; +CLOP75TA2 PO; +JARD1TAB3 PO; +SUCR1ORA PO
[2023-01-13 13:58] LABS: PERCENT SATURATION 11.5 % (19.7-50.0)
== END ==
LOC: M LAB REF 12:09
PROVIDERS: ATTEND Internal Medicine
DX: K92.2 Gastrointestinal hemorrhage, unspecified (principal)

== ENCOUNTER 2023-09-05 22:50 | Emergency (ER) | payer MEDICARE ==
[~2023-09-05] VITALS: Ht 180.3 cm; Wt 103.6 kg
[2023-09-06 01:09] VITALS: BP 158/82; TEMP 97.2; O2SAT 98
[2023-09-06] MEDS: NORCO, ANEXSIA 5/325MG TABLET (HYDROcodone/ACETAMINOPHEN) PO ONE (02:08)
[2023-09-06] MEDS: NORCO 5/325MG TABLET (HOME DOSE PACK) PO ONE (03:35)
== END 2023-09-06 03:41 | disposition home or self-care (01) ==
LOC: M ED 22:50
DX: S52.502A Unspecified fracture of the lower end of left radius, initial encounter for closed fracture (principal); W19.XXXA Unspecified fall, initial encounter; Y92.009 Unspecified place in unspecified non-institutional (private) residence as the place of occurrence of the external cause; Y93.9 Activity, unspecified; Y99.9 Unspecified external cause status; I69.354 Hemiplegia and hemiparesis following cerebral infarction affecting left non-dominant side; Z79.82 Long term (current) use of aspirin; Z79.4 Long term (current) use of insulin; Z79.899 Other long term (current) drug therapy; Z88.1 Allergy status to other antibiotic agents; Z88.8 Allergy status to other drugs, medicaments and biological substances

== ENCOUNTER → 2023-09-07 | Outpatient (CLI) | payer MEDICARE | LOC: M SOG 13:18 | PROVIDERS: ATTEND Student in an Organized Health Care Education/Training Program | DX: M25.531 Pain in right wrist (principal) ==

== ENCOUNTER → 2023-09-13 | Outpatient (CLI) | payer MEDICARE | LOC: M SOG 15:57 | PROVIDERS: ATTEND Physician Assistant | DX: S52.502D Unspecified fracture of the lower end of left radius, subsequent encounter for closed fracture with routine healing (principal); M25.562 Pain in left knee; M17.12 Unilateral primary osteoarthritis, left knee ==

== ENCOUNTER → 2023-09-21 | Outpatient (CLI) | payer MEDICARE | LOC: M SOG 08:00 | PROVIDERS: ATTEND Physician Assistant | DX: S52.502A Unspecified fracture of the lower end of left radius, initial encounter for closed fracture (principal); W18.30XA Fall on same level, unspecified, initial encounter; Y92.009 Unspecified place in unspecified non-institutional (private) residence as the place of occurrence of the external cause ==

== ENCOUNTER → 2023-09-26 | Outpatient (CLI) | payer MEDICARE | LOC: M SOG 09:36 | PROVIDERS: ATTEND Student in an Organized Health Care Education/Training Program | DX: S52.502A Unspecified fracture of the lower end of left radius, initial encounter for closed fracture (principal); W18.30XA Fall on same level, unspecified, initial encounter; Y92.009 Unspecified place in unspecified non-institutional (private) residence as the place of occurrence of the external cause ==

== ENCOUNTER → 2023-10-05 | Outpatient (CLI) | payer MEDICARE | LOC: M SOG 07:56 | PROVIDERS: ATTEND Physician Assistant | DX: Z53.9 Procedure and treatment not carried out, unspecified reason (principal) ==

== ENCOUNTER → 2023-10-07 | Outpatient (CLI) | payer MEDICARE | LOC: M WHC 10:58 | PROVIDERS: ATTEND Internal Medicine | DX: Z13.820 Encounter for screening for osteoporosis (principal); M85.89 Other specified disorders of bone density and structure, multiple sites ==

== ENCOUNTER → 2023-10-11 | Outpatient (CLI) | payer MEDICARE | LOC: M SOG 07:54 | PROVIDERS: ATTEND Physician Assistant | DX: S52.502A Unspecified fracture of the lower end of left radius, initial encounter for closed fracture (principal); W18.30XA Fall on same level, unspecified, initial encounter; Y92.009 Unspecified place in unspecified non-institutional (private) residence as the place of occurrence of the external cause ==

== ENCOUNTER → 2024-11-30 | Outpatient (REF) | payer MEDICARE, OTHER ==
[~2024-11-30] MED LIST changes: +META-10 PO; -META1TAB22 PO
[2024-11-30 21:54] LABS: APPEARANCE, URINE MANUAL CLOUDY (CLEAR); COLOR, URINE MANUAL RED (YELLOW)
[2024-11-30 21:55] LABS: PH,URINE MAN 5.0 UNITS (5.0 - 7.0); SPECIFIC GRAVITY,URINE MANUAL 1.030 (1.002-1.035)
[2024-11-30 21:56] LABS: BILIRUBIN, URINE MANUAL NEGATIVE (NEGATIVE); GLUCOSE, URINE (UA) MANUAL NEGATIVE (NEGATIVE); KETONE, URINE MANUAL 1+ mg/dL (NEGATIVE); PROTEIN, URINE MANUAL 3+ mg/dL (NEGATIVE); UROBILINOGEN, URINE MANUAL NORMAL (NORMAL)
[2024-11-30 21:57] LABS: BLOOD URINE MANUAL POSITIVE (NEGATIVE); LEUKOCYTE ESTERASE, URINE MAN POSITIVE (NEGATIVE); NITRITE, URINE MANUAL NEGATIVE (NEGATIVE)
[2024-11-30 22:02] LABS: WBC, URINE 0-1 /hpf (0-3)
[2024-11-30 22:03] LABS: BACTERIA, URINE NONE SEEN; HYALINE CAST, URINE NONE SEEN /lpf (0-1); RBC, URINE TNTC /hpf (0-3); SQUAMOUS EPITHELIAL CELL URINE NONE SEEN /hpf (SMALL AMT)
== END ==
LOC: M LAB REF 21:10
PROVIDERS: ATTEND Physician Assistant
DX: N39.0 Urinary tract infection, site not specified (principal)

== ENCOUNTER → 2025-03-14 | Outpatient (CLI) | payer MEDICARE | LOC: M CARPUL 09:24 | PROVIDERS: ATTEND Internal Medicine | DX: I48.21 Permanent atrial fibrillation (principal); I08.9 Rheumatic multiple valve disease, unspecified ==